=== PATIENT | male | born 1940 | race Caucasian/White ===

== ENCOUNTER 2016-10-03 09:30 | Inpatient (IN) | payer MEDICARE, OTHER ==
--- NOTE | ~2016-10-03 | HP ---
History And Physical [address] [address] NAME: ORAL GILLIAM : 41 STATUS : ADM IN [facility]#: [id number] AGE: 75 ADM/REG DATE : 10/03/16 MR#: [id number] REPORT SERV DATE: 10/03/16 DICTATED BY: ROEWNA FIGUEROA DATE: 10/03/16 REPORT STATUS : Draft TRANSCRIBED BY: MODL DATE: 10/03/16 DATE OF ADMISSION: 10/03/2016 PRIMARY CARE DOCTOR: Dr. Eder Garg. HISTORY OF PRESENT ILLNESS: This is a pleasant 75-year-old male. He has a known history of cardiomyopathy, LVEF 35%, 2012, has an AICD placement. Apparently was hospitalized back in early August for defibrillation for which the patient syncopized prior and did not do know that he was defibrillated. 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 Lopez. Known history of heparin-induced thrombocytopenia. Moderate to severe TR. Moderate MR. History of YUSUF on CPAP. Diverticulosis. Additional surgical history of AAA repair by Dr. Napier. CABG 1991. Left knee surgery. Back surgery. Left shoulder surgery. Skin cancer removed. The patient comes in after being recently discharged just yesterday. At that time, the patient had acute on chronic decompensated heart failure, systolic in nature, cor pulmonale. Hemoccult-positive. Anemia. MICHAEL on CKD was being seen by Nephrology. The patient was given IV Bumex drip at that time and was discharged on Demadex 40 p.o. b.i.d. It was thought to have also had bilateral lower extremity cellulitis with VTE being ruled out via ultrasound. Wound cultures at that time had showed Acinetobacter Enterococcus. Unclear if that was contamination; however, the patient was given 7 days of IV vancomycin and Zosyn with erythema improving. The patient was at home, was doing fairly okay. Then, he had uncontrollable coughing "smothering" especially while being orthopneic. The patient had positive chills. No fevers. No nausea. No vomiting. No diarrhea. No chest pain. No chest pressure. Positive shortness of breath. Positive orthopnea. Unclear if the patient had any PND as the patient is usually awake, at times waking up gasping for breath. Increased abdominal distention per the patient. There was a consideration last admission for which the patient was just discharged yesterday for a possible hospice destination of care if the patient's noncompliance continues, this patient feels uncomfortable with the amount of urination on diuretics for which the patient was diuresed with a negativity of 10.5 L last hospitalization; however, the patient states that he would like to be on the best regimen to make him comfortable and be compliant as the patient would like to continue living as the patient has grandchildren and they were about to be in the hospice formally at this time. The patient's anemia apparently was stable and his guaiac was positive. The patient comes in here. BNP is markedly elevated 914. Troponin was negative. INR is 2.3 for which the patient is only on Eliquis. Chest x-ray is underinspired. Some of the right History And Physical [address] [address] NAME: ORAL GILLIAM : 41 STATUS : ADM IN [facility]#: [id number] AGE: 75 ADM/REG DATE : 10/03/16 MR#: [id number] REPORT SERV DATE: 10/03/16 DICTATED BY: ROWENA FIGUEROA DATE: 10/03/16 REPORT STATUS : Draft TRANSCRIBED BY: BLANKA DATE: 10/03/16 middle lobe infiltrate. Some very mild bibasilar alveolar infiltration. REVIEW OF SYSTEMS: Done, see HPI. Otherwise, negative. PAST MEDICAL HISTORY: See above. PAST SURGICAL HISTORY: See above. ALLERGIES: NIACIN, HEPARIN-INDUCED THROMBOCYTOPENIA, APPARENTLY ALSO ON METOLAZONE DRUG INTOLERANCE, SEVERE HYPOKALEMIA AT THAT TIME. SOCIAL HISTORY: Quit smoking at age 51. Social wine use per history. , 2 children. Lives in [place]. History of marijuana use. 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 FAMILY HISTORY: Father in his 90s. Known history of PAD and heart disease as well. HOME MEDICATIONS: See MAR. We will continue what is relevant. OBJECTIVE: VITAL SIGNS: He is 102/62, then was 110 systolic, 97.5 temperature, 62 pulse, 18 respirations, and 95% on room air. GENERAL: No acute distress. HEENT: PERRLA. No scleral icterus. No carotid bruit. CARDIOVASCULAR: No carotid bruit. Regular rate and rhythm. No murmur. RESPIRATORY: Bibasilar coarse breath sounds. ABDOMEN: Positive distention. Positive pain, more in the right flank I noticed in the right lower quadrant. NEUROLOGIC: GCS 15. A and O x4. PSYCHIATRIC: Normal affect and mood. LABS: White count 6.7, hemoglobin 10.5, 125,000 platelets, 5.2, potassium 25, bicarb 2.35, creatinine baseline appears to be near that 1.9 and 2.3, 53 BUN, 133 sodium, 223 sugar. BNP 914. ABG 7.46/82 on 21%. INR 2.3. He is not on Coumadin. He is only on Eliquis. Chest x-ray, see above. Also EKG is going to be pending. I will go ahead and order my own. ASSESSMENT AND PLAN: 1. Acute decompensated heart failure acute on chronic systolic likely diastolic heart failure, LVEF last thought to have been 35%. Consideration for possible cor pulmonale. Unclear etiology for cor pulmonale. 2. Likely clinical chronic obstructive pulmonary disease who has had a history of cor pulmonale. 3. Chronic obstructive pulmonary disease at 3. 4. Baseline next is going to be this right middle lobe haziness. 5. Insulin-dependent diabetes, seems well controlled. 6. Mild hyperkalemia get EKG plan to go ahead admit to myself. The patient was considered for possible hospice given noncompliance with his medication regimen appears the History And Physical [address] [address] NAME: ORAL GILLIAM : 42 STATUS : ADM IN PAT#: [id number] AGE: 75 ADM/REG DATE : 10/03/16 MR#: [id number] REPORT SERV DATE: 10/03/16 DICTATED BY: ROWENA FIGUEROA DATE: 10/03/16 REPORT STATUS : Draft TRANSCRIBED BY: BLANKA DATE: 10/03/16 patient would like to be on the best regimen for his comfort of not being overly diurese in an uncomfortable manner. As a result, we will try to give the patient eventual discharge regimen of diuretics more in the morning in the interim, we will diurese the patient. Bumex 1 IV t.i.d. get an echo if not done in the last six months. Also cardiology consultation. Given consideration of possible hospice and recurrent readmissions. The patient was last discharged just yesterday. We will also go ahead and get a procalcitonin 4.5. He was started on Levaquin for consideration for right middle lobe possible infiltrate on like does not appear clinically to have any pneumonia the patient needs an outpatient PFT with possible Spiriva. We will also consider the patient to go to a facility before being discharged home is clearly cannot do as well at home. 7. Given his ascites and abdominal pain, I will get a CT of the abdomen and pelvis hepatitis ABC serologies does have an elevated INR without any explanation as patient is only on Eliquis and as a result of recent history of guaiac-positive stool, we will re-guaiac and reduce his Eliquis and we will consider holding that with a PPI b.i.d. therapy. 1.5 L free water fluid restriction. Resume his home CPAP see rest of my orders including anesthesiology physician assistant to talk about medication compliance. 8. All questions were answered. It took over 60 minutes to do. Reference [employer] and [employer]. WST/MODL Rowena Figueroa DO / [id number] CC: DO Eder Richard M.D.
--- NOTE | ~2016-10-03 | DS ---
Discharge Summary [place] [id number] [facility] [place]. [address] NAME: ORAL GILLIAM : 42 STATUS : DIS IN PAT#: [id number] AGE: 75 ADM/REG DATE : 10/03/16 MR#: [id number] REPORT SERV DATE: 10/17/16 DICTATED BY: GRETTA WINCHESTER DATE: 10/16/16 REPORT STATUS : Draft TRANSCRIBED BY: BLANKA DATE: 10/16/16 ADMISSION DATE: 10/03/2016 DISCHARGE DATE: 10/16/2016 DIAGNOSES: 1. Anasarca. 2. Acute on chronic systolic congestive heart failure exacerbation. 3. Lymphedema. 4. Severe tricuspid regurgitation. 5. Chronic kidney disease. 6. Type 2 diabetes. 7. Chronic atrial fibrillation. 8. Debility. FOLLOWUP: The patient should follow up with Dr. Cory Lopez, first aid director, in three to four weeks and to follow up with the primary care physician in one to two weeks after rehab. DIET: Low-salt diet. DISCHARGE MEDICATIONS: Eliquis 5 mg p.o. b.i.d., aspirin 81 mg p.o. q.h.s., Lipitor 20 mg p.o. q.h.s., torsemide 40 mg p.o. b.i.d., Coreg 12.5 mg p.o. b.i.d. hold for systolic pressures less than 100 and pulse less than 60, fenofibrate 160 mg p.o. daily, ferrous sulfate 300 mg p.o. q. supper, Neurontin 200 mg p.o. q.8 hours, level 2 subcu sliding scale insulin, morphine SR 15 mg p.o. b.i.d., nystatin topically b.i.d., Protonix 40 mg p.o. q.a.m., MiraLAX one pack p.o. q.h.s., Aldactone 25 mg p.o. daily, Flomax 0.4 mg p.o. q. breakfast, Spiriva inhaled daily, albuterol inhaled q.4 hours, Levemir 22 units subcu daily, Tessalon Perles 100 mg p.o. q.4 hours p.r.n., Lotrimin cream topically b.i.d. p.r.n., diphenhydramine 25 mg p.o. b.i.d. p.r.n., Kevil 10/325 one tab p.o. q.6 hours p.r.n., Robaxin 500 mg p.o. four times a day p.r.n., nitroglycerin sublingual p.r.n., potassium chloride 20 mEq p.o. b.i.d., Afrin spray one spray per nostril b.i.d. p.r.n. epistaxis. CONSULTANTS: Cardiology, Dr. Cory Lopez with [facility] Nephrology Dr. Cornejo. HOSPITALISTS: Dr. Eric Torres and Dr. Winchester. HOSPITAL COURSE: This is a 75 years old male with a past medical history of cardiomyopathy with ejection fraction of 35% status post AICD, history of hypertension, obstructive sleep apnea on CPAP, originally discharged from the hospital with fluid overload and CHF exacerbation, for which the patient required readmission for further fluid overload. The patient was seen by Cardiology with [facility]. The patient was diuresed, placed on IV Bumex, and required pulse dosing with albumin for better diuresing. He was also seen by Nephrology for assistance. The patient did have some improvement with his fluid overload. However, at baseline, has anasarca, but continues to have chronic lymphedema of the lower extremities. His breathing improved with diuresing, but still requiring lymphedema treatment. The patient was approved for [facility] and will be Discharge Summary [address] [address] NAME: ORAL GILLIAM : 42 STATUS : DIS IN PAT#: [id number] AGE: 75 ADM/REG DATE : 10/03/16 MR#: [id number] REPORT SERV DATE: 10/17/16 DICTATED BY: GRETTA WINCHESTER DATE: 10/16/16 REPORT STATUS : Draft TRANSCRIBED BY: BLANKA DATE: 10/16/16 discharged to [facility] and also will order for some lymphedema treatment as well. He was continued on his Eliquis by Cardiology and Nephrology for his history of chronic atrial fibrillation. He did have a repeat echocardiogram by Cardiology that revealed severe tricuspid regurgitation, which is adding to the patient's chronic lower extremity edema. Per Cardiology, the patient is not a surgical candidate and also the patient does not want any surgical intervention. Also, he was educated on low-salt diet and fluid restriction. He was discharged to [facility] clinically stable to follow up with the specialist as an outpatient. This discharge required greater than 35 minutes. LENCHO/BLANKA Gretta Winchester M.D. / [id number] CC: Aaron Mattson M.D.
--- NOTE | ~2016-10-03 | CN ---
Consultation Report [facility] [address] [place]. [address] NAME: ORAL GILLIAM : 42 STATUS : ADM IN PAT#: [id number] AGE: 75 ADM/REG DATE : 10/03/16 MR#: [id number] REPORT SERV DATE: 10/03/16 DICTATED BY: SANCHEZ MACK DATE: 10/03/16 REPORT STATUS : Draft TRANSCRIBED BY: MODL DATE: 10/03/16 CARDIOLOGY CONSULT DATE OF CONSULTATION: REFERRING REASON: Heart failure exacerbation and COPD exacerbation. HISTORY OF PRESENT ILLNESS: This is a pleasant 75-year-old white obese gentleman, well known to Dr. Cory Lopez, from [facility] who has been discharged from hospitalist service yesterday and readmitted today. He was readmitted for signs of PND last night and cough which apparently lasted for last three days. He denied any fever or chills. He has remote history of smoking and possible underlying COPD. He also has ischemic cardiomyopathy with EF 40% which actually showed improvement of ejection fraction from 35% previously, last echo was in August 2016. He has AICD in place without any recent discharges. His problem remained chronic kidney disease. Diuretics are managed by Nephrology. He also has some chronic venous insufficiency and history of AAA repair in the past and coronary bypass surgery in the past. The patient denies any chest pain. He has problem with cellulitis on both lower extremities and has been taking antibiotics for it until now. The chest x-ray has not revealed any significant fluid overload. No pleural effusion. BNP was only 917. INR is 2.3, hemoglobin is 10.5, and sodium 133 with creatinine 2.3 and BUN 53. Troponin is negative. The patient is on chronic anticoagulation with Eliquis for chronic atrial fibrillation. He is currently comfortable sitting and eating dinner. No shortness of breath. He is using oxygen only during the night. The rest of review of systems negative. He has not noticed any significant weight gain over less than 24 hours. PAST MEDICAL HISTORY: 1. Chronic congestive heart failure with recent exacerbation. 2. Ischemic cardiomyopathy with improvement of ejection fraction to 40% by echocardiogram August 2016. There is remote history of CABG with last coronary arteriogram in 2011 without any intervention option, medical therapy recommended. 3. Chronic kidney disease followed by Nephrology. 4. AICD in place without any recent discharges. 5. Chronic lower extremity edema in the setting of chronic venous insufficiency and recent cellulitis. 6. History of AAA repair in 2009. 7. He has renal artery stenting in the past. 8. Diabetes mellitus. 9. Obesity. 10.Chronic atrial fibrillation, on anticoagulation with Eliquis. SOCIAL HISTORY: The patient is . He quit smoking 25 years ago. He walks with a walker. Denies drinking alcohol or using street drugs. FAMILY HISTORY: Negative for sudden cardiac deaths or premature coronary artery disease in Consultation Report [address] [place]. [address] NAME: ORAL GILLIAM : 42 STATUS : ADM IN [facility]#: [id number] AGE: 75 ADM/REG DATE : 10/03/16 MR#: [id number] REPORT SERV DATE: 10/03/16 DICTATED BY: SANCHEZ MACK DATE: 10/03/16 REPORT STATUS : Draft TRANSCRIBED BY: BLANKA DATE: 10/03/16 the family. ALLERGIES: NIACIN AND METOLAZONE CAUSED HIM SEVERE HYPOKALEMIA. HOME MEDICATIONS: Eliquis 2.5 mg twice a day, aspirin 85 mg once a day, Lipitor 20 mg once a day, Coreg 12.5 mg twice a day, Benadryl p.r.n., fenofibrate 160 mg once a day, hydrocodone as needed, insulin, methocarbamol 500 mg four times a day as needed, MiraLAX as needed, potassium supplement 20 mEq twice a day, Aldactone 50 mg twice a day, Flomax, Demadex 40 mg twice a day. PHYSICAL EXAMINATION: GEN: No acute distress. Appears stated age. VITAL SIGNS: Blood pressure 111/56, heart rate 67, irregularly irregular. HEENT: Pupils reactive to light and accommodation. Moist mucosa membrane. NECK: No JVD. Normal carotid upstroke. No carotid bruits. LUNGS: Decreased breath sounds bibasilar, but no crackles. COR: Normal S1, S2. No S3 or S4. No significant rub. Laterally displaced PMI with soft systolic murmur 2/6 at the apex. ABD: Obese, distended, nontender. EXT: 1+ edema up to the half of the goldstein with surgical bandages over both shins and decreased pedal pulses bilaterally. SKIN: Warm with normal turgor. MS: No kyphosis. NEURO/PSY: Alert and oriented. Nonfocal. ASSESSMENT AND PLAN: 1. Congestive heart failure with recent exacerbation. 2. Likely chronic obstructive pulmonary disease exacerbation. 3. Ischemic cardiomyopathy. 4. Chronic atrial fibrillation, currently rate controlled. 5. Chronic anticoagulation with Eliquis. The patient will be on strict fluid restriction while he also has hyponatremia and heart failure exacerbation. We will ask help from Nephrology with management of his diuretics while he also has renal insufficiency. There are no obvious signs of fluid overload on physical exam at the present time. Thus, I believe that COPD may play some role in his recent exacerbation. We will continue anticoagulation with Eliquis. Dr. Lopez, will see patient in the morning. IVY/BLANKA Sanchez Mack M.D. Consultation Report [address] [address] NAME: ORAL GILLIAM : 42 STATUS : ADM IN PAT#: [id number] AGE: 75 ADM/REG DATE : 10/03/16 MR#: [id number] REPORT SERV DATE: 10/03/16 DICTATED BY: SANCHEZ MACK DATE: 10/03/16 REPORT STATUS : Draft TRANSCRIBED BY: BLANKA DATE: 10/03/16 / [id number] CC: DO Eder Richard M.D.
--- NOTE | ~2016-10-03 | IDS ---
Interim Discharge Summary [facility] [address] [place] [place]. [address] NAME: ORAL GILLIAM : 42 STATUS : ADM IN PAT#: [id number] AGE: 75 ADM/REG DATE : 10/03/16 MR#: [id number] REPORT SERV DATE: 10/09/16 DICTATED BY: ROWENA FIGUEROA DATE: 10/09/16 REPORT STATUS : Draft TRANSCRIBED BY: MODL DATE: 10/09/16 ADMISSION DATE: 10/03/2016 DISCHARGE DATE: HOSPITAL COURSE: This is a 75-year-old, male with known history of cardiomyopathy, EF 35%, now up to 40%; AICD placement; known history of diabetes, A1c pretty well controlled 6.8, apparently, insulin dependence; CAD with PCI; history of CABG, sees Dr. 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 The patient comes in after recent discharge. At that time, he had acute on chronic decompensated heart failure, cor pulmonale, Hemoccult positivity, planned for an outpatient endoscopy with vanc and Zosyn treatment for Acinetobacter, Enterococcal wound culture unclear if that is colonization. The patient came in with significant PND and orthopnea. Apparently, the patient was upset regarding consideration for palliative care/hospice. As a result, both Renal and Cardiology became involved in re-admission. The patient has been on IV Bumex here now to IV diuresis per Renal. The patient has had clinical COPD with wheezing, improved with 3 out 3 GOLD criteria warranted Levaquin and corticosteroids. I did discontinue the corticosteroid given unpredictable glycemic need and the patient now is becoming more hypoglycemic. As a result, we will get a.m. cortisol and TSH. Cortisol could have been affected though by corticosteroid. The patient seems to not be eating as much. We will have dietary education regarding compliance with diet. The patient will get a repeat ultrasound of lower extremities. His Physical Therapy told me that legs appeared to be more swollen today compared to last week. I will go ahead and reduce his insulin requirements he had again despite taking much less than he does at home. The patient may have some very mild dementia, had a CT of the brain that did show atrophy. B12, ammonia folate were fairly unremarkable. The patient will be followed tomorrow by my partner Dr. Joy, get repeat ultrasound lower extremities. See my orders including regular Accu-Cheks given hypoglycemic. Defer to Renal and Cardiology and their expertise for the date of discharge. Hope would be more euvolemia. All questions were answered. It took over 30 minutes to coordinate all of this. NATALIE/BLANKA Rowena Figueroa DO Interim Discharge Summary [facility] [address] [facility] [place]. [address] NAME: ORAL GILLIAM : 42 STATUS : ADM IN PAT#: [id number] AGE: 75 ADM/REG DATE : 10/03/16 MR#: [id number] REPORT SERV DATE: 10/09/16 DICTATED BY: ROWENA FIGUEROA DATE: 10/09/16 REPORT STATUS : Draft TRANSCRIBED BY: MODL DATE: 10/09/16 / [id number] CC: DO Eder Richard M.D.
[~2016-10-03 09:30] MED LIST: AMB5 PO; AMIT10 PO; AMIT25 PO; ASAB PO; BEN25 PO; BENADRYL 50 MG50 MG PO; BUM2 PO; BYDUREON2 MG SQ; BYETTA10 SC; CALC/MAG/ZINC PO; CALCIUM/MAG/ZINC PO; CARTIA XT240 MG/24 PO; CLOTRIMAZOLE1 % TOP; CO Q-1050 MG PO; COQ-10200 MG OR; COQ10100 MG OR; COQ10100 MG PO; COREG25 PO; COREG6 PO; COREGCR20 PO; CRESTOR10 PO; CRESTOR20 MG PO; CRESTOR40 MG PO; DEMA20 PO; DIABETA5 PO; DSS PO; ELIQUIS 5 MG TAB5 MG PO; FERROUS SULF325 M1 PO; FISH OIL1200 MG PO; FISH-EPA1000 MG PO; FLOMAX4 PO; FOLIC ACID400 MC1 PO; GLUCOV5 PO; HCTZ25B PO; HUMALOG SC; HUMALOGPEN SC; IBU-200200 MG PO; KLOR-CON 1010 MEQ PO; KLOR-CON M2020 MEQ PO; KLOR-CON20 MEQ PO; LANTUSCART SC; LEVEMFLXPN SC; LEVEMIR SC; LIPITOR20 PO; LOFIB160 PO; LOFIBRA54 MG PO; LORTAB10 PO; LYRICA100 MG PO; MELA3 PO; MELATONIN1 M1 PO; METAMUCIL CAN7 OZ PO; METHOC500B PO; METOLAZONE PO; MIRALAXPKT PO; MULTIPLE VIT PO; NEUR600 PO; NIACIN 500 PO; NITROSTAT0.4 MG SL; NORCO1 TAB PO; NOVOLOG SC; NYSTATPOW TOP; PLAVIX PO; PROTONIX PO; SPIRO25 PO; SPIRO50 PO; TESTOSTERONE SL; TOUJEO SC; TRICOR145 PO; VIT B-SIX 50 MG50 MG PO; VITAMIN D31000 UNIT PO; VITC500 PO; VITE PO; VYTORIN 10/20 T1 TAB PO; ZAROX2.5B PO; ZINC GLUCON50 MG PO; [UNRECOGNIZED DRUG - OTHER]; [UNRECOGNIZED DRUG - OTHER]; [UNRECOGNIZED DRUG - OTHER] TOP
[2016-10-03 09:37] LABS: ALLENS TEST Pos; BE (BASE EXCESS) -2.3 MEQ/L (0 +/- 2.5); CARBOXYHEMOGLOBIN 1.5 % (0-3); HCO3 (ACTUAL BICARBONATE) 20.7 MEQ/L (23-27); INSTRUMENT SERIAL # 8087; METHEMOGLOBIN 0.2 % (0-3); O2 CONTENT 14.7 VOL% (18-24); PCO2 (CO2 TENSION) 30 MMHG (35-45); PO2 (O2 TENSION) 82 MMHG (79-93); SAMPLE Arterial; pH 7.46 (7.37-7.43)
[2016-10-03 10:30] LABS: BASOPHILS 0.4 %; BASOPHILS ABSOLUTE 0.03 10/3/uL (0.0-0.16); EOSINOPHILS 2.1 %; EOSINOPHILS ABSOLUTE 0.14 10/3/uL (0.0-0.53); HEMATOCRIT 33.3 % (40.0-51.0); HEMOGLOBIN 10.5 g/dL (13.6-17.8); IMMATURE GRANULOCYTES 0.1 %; IMMATURE GRANULOCYTES ABSOLUTE 0.01 10/3/uL (0.0-0.11); LYMPHOCYTES 8.3 %; LYMPHOCYTES ABSOLUTE 0.56 10/3/uL (0.67-4.30); MEAN CORPUS HGB CONC 31.5 g/dL (32.0-36.0); MEAN CORPUSCULAR HEMOGLOB 29.3 pg (26.0-34.0); MEAN PLATELET VOLUME 11.4 fL (9.2-13.0); MONOCYTES 10.4 %; NEUTROPHILS 78.7 %; NEUTROPHILS ABSOLUTE 5.29 10/3/uL (2.02-8.40); PLATELET COUNT 125 10/3/uL (150-400); RBC DISTRIBUTION WIDTH 17.9 % (12.0-16.0); RED CELL COUNT 3.58 10/6/uL (4.7-6.1); WHITE BLOOD CELLS 6.7 10/3/uL (4.5-10.5)
[2016-10-03 10:31] LABS: MANUAL DIFF NO %
[2016-10-03 10:36] LABS: INTERNATIONAL NORMAL RATI 2.3 UNITS (-)
[2016-10-03 10:37] LABS: PARTIAL THROMBO TIME 44.9 SEC (22.5-37.2)
[2016-10-03 10:43] LABS: INFLUENZA A SCREEN NEGATIVE (NEGATIVE); INFLUENZA B SCREEN NEGATIVE (NEGATIVE)
[2016-10-03 10:57] LABS: B NATRIURETIC PEPTIDE (BNP) 914.2 PG/ML (< 100.0)
[2016-10-03 11:04] LABS: CALCIUM, SERUM 8.7 MG/DL (8.5-10.4); CHLORIDE, SERUM 96 MMOL/L (96-112); CO2 (CARBON DIOXIDE) 25 MMOL/L (24-34); CPK 114 U/L (0-200); CREATININE 2.35 MG/DL (0.70-1.30); GFR AFRICAN AMERICAN 30 ML/MIN (>=60); GFR NON AFRICAN AMERICAN 26 ML/MIN (>=60); POTASSIUM, SERUM 5.2 MMOL/L (3.5-5.3); SODIUM, SERUM 133 MMOL/L (135-148); TROPONIN I 0.04 NG/ML (<0.05)
[2016-10-03 11:06] LABS: BUN (BLOOD UREA NITROGEN) 53 MG/DL (6-23); CK-MB 2.8 NG/ML; GLUCOSE, SERUM 223 MG/DL (60-99)
[2016-10-03 11:07] LABS: CHEST PAIN PROFILE TAT 0 Hrs 38 Mins
[2016-10-03 16:39] LABS: A/G RATIO 0.7 (0.7-1.9); ALBUMIN 3.1 G/DL (3.5-5.0); ALKALINE PHOSPHATASE 60 U/L (45-117); GLOBULIN 4.2 G/DL (2.5-4.1); PHOSPHORUS, SERUM 3.1 MG/DL (2.5-4.5); SGOT(AST) 40 U/L (5-40); SGPT(ALT) 22 U/L (5-65); TOTAL PROTEIN 7.3 G/DL (6.0-8.5)
[2016-10-03 16:40] LABS: TOTAL BILIRUBIN 1.5 MG/DL (0-1.2)
[2016-10-03 23:26] LABS: WBC (NOT ORDERED) (RFLEX) 0 (0-5)
[2016-10-04 01:38] LABS: ASCORBIC ACID (UR NOT ORDER) NEG (NEG); BILIRUBIN, URINE NEGATIVE (NEG); ER URINALYSIS TAT 2 Hrs 12 Mins; KETONE, URINE NEGATIVE (NEG); LEUKOCYTE ESTERASE(NOT OR NEG (NEG); NITRITE (URINE) NEG (NEG)
[2016-10-04 07:10] LABS: BASOPHILS 0.7 %; BASOPHILS ABSOLUTE 0.05 10/3/uL (0.0-0.16); EOSINOPHILS 3.5 %; EOSINOPHILS ABSOLUTE 0.24 10/3/uL (0.0-0.53); HEMATOCRIT 31.5 % (40.0-51.0); HEMOGLOBIN 9.7 g/dL (13.6-17.8); IMMATURE GRANULOCYTES 0.1 %; IMMATURE GRANULOCYTES ABSOLUTE 0.01 10/3/uL (0.0-0.11); LYMPHOCYTES 16.9 %; LYMPHOCYTES ABSOLUTE 1.16 10/3/uL (0.67-4.30); MEAN CORPUS HGB CONC 30.8 g/dL (32.0-36.0); MEAN CORPUSCULAR HEMOGLOB 28.7 pg (26.0-34.0); MEAN CORPUSCULAR VOLUME 93.2 fL (80-100); MEAN PLATELET VOLUME 10.6 fL (9.2-13.0); MONOCYTES ABSOLUTE 0.34 10/3/uL (0.21-1.20); NEUTROPHILS 73.8 %; NEUTROPHILS ABSOLUTE 5.05 10/3/uL (2.02-8.40); PLATELET COUNT 118 10/3/uL (150-400); RBC DISTRIBUTION WIDTH 17.9 % (12.0-16.0); RED CELL COUNT 3.38 10/6/uL (4.7-6.1); WHITE BLOOD CELLS 6.9 10/3/uL (4.5-10.5)
[2016-10-04 07:12] LABS: MANUAL DIFF NO %
[2016-10-04 09:54] LABS: ALBUMIN 2.8 G/DL (3.5-5.0); BUN (BLOOD UREA NITROGEN) 50 MG/DL (6-23); CALCIUM, SERUM 8.6 MG/DL (8.5-10.4); CHLORIDE, SERUM 95 MMOL/L (96-112); CO2 (CARBON DIOXIDE) 21 MMOL/L (24-34); CREATININE 2.23 MG/DL (0.70-1.30); GFR AFRICAN AMERICAN 32 ML/MIN (>=60); GFR NON AFRICAN AMERICAN 28 ML/MIN (>=60); GLUCOSE, SERUM 238 MG/DL (60-99); PHOSPHORUS, SERUM 3.3 MG/DL (2.5-4.5); SODIUM, SERUM 130 MMOL/L (135-148)
[2016-10-04 09:55] LABS: POTASSIUM, SERUM 4.5 MMOL/L (3.5-5.3)
[2016-10-04 10:36] LABS: HEPATITIS B SURFACE ANTIGEN NON-REACTIVE (NON-REACT)
[2016-10-04 10:59] LABS: HEPATITIS C ANTIBODY NON-REACTIVE (NON-REACT)
[2016-10-04 11:00] LABS: HEPATITIS B CORE AB IGM NON-REACTIVE (NON-REAC)
[2016-10-04 11:01] LABS: HEP A ANTIBODY IGM NON-REACTIVE (NON-REACT)
[2016-10-04 22:03] LABS: GLYCOHEMOGLOBIN (HbA1c) 6.2 % (4.7-6.1)
[2016-10-05 07:07] LABS: BASOPHILS 0 %; EOSINOPHILS 0.3 %; EOSINOPHILS ABSOLUTE 0.01 10/3/uL (0.0-0.53); HEMATOCRIT 32.2 % (40.0-51.0); HEMOGLOBIN 10.2 g/dL (13.6-17.8); IMMATURE GRANULOCYTES 0.3 %; IMMATURE GRANULOCYTES ABSOLUTE 0.01 10/3/uL (0.0-0.11); LYMPHOCYTES ABSOLUTE 0.34 10/3/uL (0.67-4.30); MEAN CORPUS HGB CONC 31.7 g/dL (32.0-36.0); MEAN CORPUSCULAR HEMOGLOB 29.7 pg (26.0-34.0); MEAN CORPUSCULAR VOLUME 93.9 fL (80-100); MEAN PLATELET VOLUME 11.1 fL (9.2-13.0); MONOCYTES 2.3 %; MONOCYTES ABSOLUTE 0.08 10/3/uL (0.21-1.20); NEUTROPHILS 87.1 %; NEUTROPHILS ABSOLUTE 2.97 10/3/uL (2.02-8.40); PLATELET COUNT 115 10/3/uL (150-400); RBC DISTRIBUTION WIDTH 17.7 % (12.0-16.0); RED CELL COUNT 3.43 10/6/uL (4.7-6.1)
[2016-10-05 07:09] LABS: MANUAL DIFF NO %; WHITE BLOOD CELLS 3.4 10/3/uL (4.5-10.5)
[2016-10-05 08:10] LABS: BUN (BLOOD UREA NITROGEN) 51 MG/DL (6-23); CALCIUM, SERUM 8.6 MG/DL (8.5-10.4); CHLORIDE, SERUM 94 MMOL/L (96-112); CO2 (CARBON DIOXIDE) 23 MMOL/L (24-34); GFR AFRICAN AMERICAN 33 ML/MIN (>=60); GFR NON AFRICAN AMERICAN 28 ML/MIN (>=60); SODIUM, SERUM 131 MMOL/L (135-148)
[2016-10-05 08:12] LABS: FOLATE 22.7 NG/ML (>5.2); GLUCOSE, SERUM 172 MG/DL (60-99)
[2016-10-06 07:42] LABS: BASOPHILS 0 %; EOSINOPHILS 0 %; HEMATOCRIT 31.9 % (40.0-51.0); HEMOGLOBIN 10.1 g/dL (13.6-17.8); IMMATURE GRANULOCYTES 0.2 %; IMMATURE GRANULOCYTES ABSOLUTE 0.02 10/3/uL (0.0-0.11); LYMPHOCYTES 5.1 %; LYMPHOCYTES ABSOLUTE 0.56 10/3/uL (0.67-4.30); MEAN CORPUS HGB CONC 31.7 g/dL (32.0-36.0); MEAN CORPUSCULAR HEMOGLOB 28.7 pg (26.0-34.0); MEAN PLATELET VOLUME 11.1 fL (9.2-13.0); MONOCYTES 9.6 %; MONOCYTES ABSOLUTE 1.06 10/3/uL (0.21-1.20); NEUTROPHILS 85.1 %; NEUTROPHILS ABSOLUTE 9.42 10/3/uL (2.02-8.40); PLATELET COUNT 132 10/3/uL (150-400); RBC DISTRIBUTION WIDTH 17.7 % (12.0-16.0); RED CELL COUNT 3.52 10/6/uL (4.7-6.1)
[2016-10-06 07:45] LABS: MANUAL DIFF NO %; MEAN CORPUSCULAR VOLUME 90.6 fL (80-100); WHITE BLOOD CELLS 11.1 10/3/uL (4.5-10.5)
[2016-10-06 07:54] LABS: INTERNATIONAL NORMAL RATI 2.2 UNITS (-)
[2016-10-06 07:55] LABS: ALBUMIN 2.9 G/DL (3.5-5.0); CALCIUM, SERUM 8.7 MG/DL (8.5-10.4); CHLORIDE, SERUM 92 MMOL/L (96-112); CO2 (CARBON DIOXIDE) 26 MMOL/L (24-34); CREATININE 2.43 MG/DL (0.70-1.30); GFR AFRICAN AMERICAN 29 ML/MIN (>=60); GFR NON AFRICAN AMERICAN 25 ML/MIN (>=60); GLUCOSE, SERUM 175 MG/DL (60-99); PHOSPHORUS, SERUM 3.6 MG/DL (2.5-4.5); POTASSIUM, SERUM 3.8 MMOL/L (3.5-5.3); SODIUM, SERUM 131 MMOL/L (135-148)
[2016-10-06 07:57] LABS: BUN (BLOOD UREA NITROGEN) 61 MG/DL (6-23)
[2016-10-06] MEDS ORDERED: NEUR600 PO (15:19)
[2016-10-07 06:55] LABS: BASOPHILS 0.1 %; BASOPHILS ABSOLUTE 0.01 10/3/uL (0.0-0.16); EOSINOPHILS 0.4 %; EOSINOPHILS ABSOLUTE 0.04 10/3/uL (0.0-0.53); HEMATOCRIT 32.3 % (40.0-51.0); HEMOGLOBIN 10.5 g/dL (13.6-17.8); IMMATURE GRANULOCYTES 0.2 %; IMMATURE GRANULOCYTES ABSOLUTE 0.02 10/3/uL (0.0-0.11); LYMPHOCYTES 8.3 %; LYMPHOCYTES ABSOLUTE 0.77 10/3/uL (0.67-4.30); MANUAL DIFF NO %; MEAN CORPUS HGB CONC 32.5 g/dL (32.0-36.0); MEAN CORPUSCULAR HEMOGLOB 29.3 pg (26.0-34.0); MEAN CORPUSCULAR VOLUME 90.2 fL (80-100); MEAN PLATELET VOLUME 11.1 fL (9.2-13.0); MONOCYTES 13.7 %; MONOCYTES ABSOLUTE 1.27 10/3/uL (0.21-1.20); NEUTROPHILS 77.3 %; NEUTROPHILS ABSOLUTE 7.18 10/3/uL (2.02-8.40); PLATELET COUNT 140 10/3/uL (150-400); RBC DISTRIBUTION WIDTH 17.5 % (12.0-16.0); RED CELL COUNT 3.58 10/6/uL (4.7-6.1); WHITE BLOOD CELLS 9.3 10/3/uL (4.5-10.5)
[2016-10-07 06:58] LABS: INTERNATIONAL NORMAL RATI 1.9 UNITS (-)
[2016-10-07 07:05] LABS: ALBUMIN 2.9 G/DL (3.5-5.0); BUN (BLOOD UREA NITROGEN) 60 MG/DL (6-23); CALCIUM, SERUM 8.5 MG/DL (8.5-10.4); CHLORIDE, SERUM 92 MMOL/L (96-112); CO2 (CARBON DIOXIDE) 25 MMOL/L (24-34); CREATININE 2.25 MG/DL (0.70-1.30); GFR AFRICAN AMERICAN 32 ML/MIN (>=60); GFR NON AFRICAN AMERICAN 28 ML/MIN (>=60); GLUCOSE, SERUM 88 MG/DL (60-99); PHOSPHORUS, SERUM 3.1 MG/DL (2.5-4.5); POTASSIUM, SERUM 3.4 MMOL/L (3.5-5.3); SODIUM, SERUM 132 MMOL/L (135-148)
[2016-10-08 05:36] LABS: INTERNATIONAL NORMAL RATI 1.9 UNITS (-); PROTIME (NOT ORD) 21.7 SEC (12.0-14.5)
[2016-10-08 05:58] LABS: CALCIUM, SERUM 8.6 MG/DL (8.5-10.4); CHLORIDE, SERUM 94 MMOL/L (96-112); CO2 (CARBON DIOXIDE) 27 MMOL/L (24-34); GFR AFRICAN AMERICAN 37 ML/MIN (>=60); GFR NON AFRICAN AMERICAN 32 ML/MIN (>=60); GLUCOSE, SERUM 97 MG/DL (60-99); POTASSIUM, SERUM 3.1 MMOL/L (3.5-5.3); SODIUM, SERUM 134 MMOL/L (135-148)
[2016-10-08 06:00] LABS: BUN (BLOOD UREA NITROGEN) 65 MG/DL (6-23)
[2016-10-09 06:44] LABS: BASOPHILS 0.2 %; BASOPHILS ABSOLUTE 0.01 10/3/uL (0.0-0.16); EOSINOPHILS 3.6 %; EOSINOPHILS ABSOLUTE 0.24 10/3/uL (0.0-0.53); HEMATOCRIT 33.3 % (40.0-51.0); HEMOGLOBIN 10.5 g/dL (13.6-17.8); IMMATURE GRANULOCYTES 0.3 %; IMMATURE GRANULOCYTES ABSOLUTE 0.02 10/3/uL (0.0-0.11); LYMPHOCYTES 14.1 %; LYMPHOCYTES ABSOLUTE 0.94 10/3/uL (0.67-4.30); MEAN CORPUS HGB CONC 31.5 g/dL (32.0-36.0); MEAN CORPUSCULAR HEMOGLOB 29.3 pg (26.0-34.0); MONOCYTES 13.4 %; MONOCYTES ABSOLUTE 0.89 10/3/uL (0.21-1.20); NEUTROPHILS 68.4 %; NEUTROPHILS ABSOLUTE 4.56 10/3/uL (2.02-8.40); PLATELET COUNT 125 10/3/uL (150-400); RBC DISTRIBUTION WIDTH 17.8 % (12.0-16.0); RED CELL COUNT 3.58 10/6/uL (4.7-6.1); WHITE BLOOD CELLS 6.7 10/3/uL (4.5-10.5)
[2016-10-09 06:46] LABS: MANUAL DIFF NO %
[2016-10-09 06:50] LABS: INTERNATIONAL NORMAL RATI 1.9 UNITS (-); PROTIME (NOT ORD) 21.8 SEC (12.0-14.5)
[2016-10-09 06:55] LABS: ALBUMIN 2.7 G/DL (3.5-5.0); BUN (BLOOD UREA NITROGEN) 62 MG/DL (6-23); CALCIUM, SERUM 8.9 MG/DL (8.5-10.4); CHLORIDE, SERUM 95 MMOL/L (96-112); CO2 (CARBON DIOXIDE) 29 MMOL/L (24-34); CREATININE 1.71 MG/DL (0.70-1.30); GFR AFRICAN AMERICAN 45 ML/MIN (>=60); GFR NON AFRICAN AMERICAN 39 ML/MIN (>=60); PHOSPHORUS, SERUM 2.8 MG/DL (2.5-4.5); POTASSIUM, SERUM 3.4 MMOL/L (3.5-5.3); SODIUM, SERUM 134 MMOL/L (135-148)
[2016-10-09 06:56] LABS: GLUCOSE, SERUM 45 MG/DL (60-99)
[2016-10-10 06:20] LABS: INTERNATIONAL NORMAL RATI 2.2 UNITS (-); PROTIME (NOT ORD) 24.2 SEC (12.0-14.5)
[2016-10-10 06:23] LABS: BASOPHILS 0.2 %; BASOPHILS ABSOLUTE 0.01 10/3/uL (0.0-0.16); EOSINOPHILS 5.5 %; EOSINOPHILS ABSOLUTE 0.34 10/3/uL (0.0-0.53); HEMATOCRIT 34.1 % (40.0-51.0); HEMOGLOBIN 10.9 g/dL (13.6-17.8); IMMATURE GRANULOCYTES 0.2 %; IMMATURE GRANULOCYTES ABSOLUTE 0.01 10/3/uL (0.0-0.11); LYMPHOCYTES ABSOLUTE 0.86 10/3/uL (0.67-4.30); MANUAL DIFF NO %; MEAN CORPUSCULAR HEMOGLOB 29.9 pg (26.0-34.0); MEAN CORPUSCULAR VOLUME 93.4 fL (80-100); MEAN PLATELET VOLUME 11.2 fL (9.2-13.0); MONOCYTES 12.4 %; MONOCYTES ABSOLUTE 0.76 10/3/uL (0.21-1.20); NEUTROPHILS 67.7 %; NEUTROPHILS ABSOLUTE 4.15 10/3/uL (2.02-8.40); PLATELET COUNT 129 10/3/uL (150-400); RBC DISTRIBUTION WIDTH 17.6 % (12.0-16.0); RED CELL COUNT 3.65 10/6/uL (4.7-6.1); WHITE BLOOD CELLS 6.1 10/3/uL (4.5-10.5)
[2016-10-10 06:43] LABS: ALBUMIN 2.9 G/DL (3.5-5.0); BUN (BLOOD UREA NITROGEN) 63 MG/DL (6-23); CALCIUM, SERUM 8.5 MG/DL (8.5-10.4); CHLORIDE, SERUM 94 MMOL/L (96-112); CO2 (CARBON DIOXIDE) 30 MMOL/L (24-34); CREATININE 1.98 MG/DL (0.70-1.30); GFR AFRICAN AMERICAN 37 ML/MIN (>=60); GFR NON AFRICAN AMERICAN 32 ML/MIN (>=60); PHOSPHORUS, SERUM 3.1 MG/DL (2.5-4.5); POTASSIUM, SERUM 3.7 MMOL/L (3.5-5.3); SODIUM, SERUM 134 MMOL/L (135-148)
[2016-10-10 06:47] LABS: GLUCOSE, SERUM 113 MG/DL (60-99)
[2016-10-11 06:52] LABS: BASOPHILS 0.1 %; BASOPHILS ABSOLUTE 0.01 10/3/uL (0.0-0.16); EOSINOPHILS 4.9 %; EOSINOPHILS ABSOLUTE 0.35 10/3/uL (0.0-0.53); HEMATOCRIT 34.3 % (40.0-51.0); HEMOGLOBIN 10.9 g/dL (13.6-17.8); IMMATURE GRANULOCYTES 0.1 %; IMMATURE GRANULOCYTES ABSOLUTE 0.01 10/3/uL (0.0-0.11); LYMPHOCYTES 9.2 %; LYMPHOCYTES ABSOLUTE 0.66 10/3/uL (0.67-4.30); MANUAL DIFF NO %; MEAN CORPUS HGB CONC 31.8 g/dL (32.0-36.0); MEAN CORPUSCULAR HEMOGLOB 29.5 pg (26.0-34.0); MEAN PLATELET VOLUME 11.1 fL (9.2-13.0); MONOCYTES 11.1 %; NEUTROPHILS 74.6 %; NEUTROPHILS ABSOLUTE 5.38 10/3/uL (2.02-8.40); PLATELET COUNT 130 10/3/uL (150-400); RBC DISTRIBUTION WIDTH 17.8 % (12.0-16.0); RED CELL COUNT 3.69 10/6/uL (4.7-6.1); WHITE BLOOD CELLS 7.2 10/3/uL (4.5-10.5)
[2016-10-11 06:57] LABS: INTERNATIONAL NORMAL RATI 2.2 UNITS (-); PROTIME (NOT ORD) 24.5 SEC (12.0-14.5)
[2016-10-11 07:05] LABS: CALCIUM, SERUM 8.5 MG/DL (8.5-10.4); CHLORIDE, SERUM 94 MMOL/L (96-112); CO2 (CARBON DIOXIDE) 29 MMOL/L (24-34); CREATININE 1.73 MG/DL (0.70-1.30); GFR AFRICAN AMERICAN 44 ML/MIN (>=60); GFR NON AFRICAN AMERICAN 38 ML/MIN (>=60); GLUCOSE, SERUM 119 MG/DL (60-99); POTASSIUM, SERUM 3.4 MMOL/L (3.5-5.3); SODIUM, SERUM 134 MMOL/L (135-148)
[2016-10-11 07:07] LABS: BUN (BLOOD UREA NITROGEN) 55 MG/DL (6-23)
[2016-10-12 06:53] LABS: BASOPHILS 0.2 %; BASOPHILS ABSOLUTE 0.01 10/3/uL (0.0-0.16); EOSINOPHILS 5.2 %; EOSINOPHILS ABSOLUTE 0.34 10/3/uL (0.0-0.53); HEMOGLOBIN 10.5 g/dL (13.6-17.8); IMMATURE GRANULOCYTES 0.2 %; IMMATURE GRANULOCYTES ABSOLUTE 0.01 10/3/uL (0.0-0.11); LYMPHOCYTES 14.4 %; LYMPHOCYTES ABSOLUTE 0.94 10/3/uL (0.67-4.30); MEAN CORPUS HGB CONC 30.9 g/dL (32.0-36.0); MEAN CORPUSCULAR HEMOGLOB 28.1 pg (26.0-34.0); MEAN CORPUSCULAR VOLUME 90.9 fL (80-100); MEAN PLATELET VOLUME 11.1 fL (9.2-13.0); MONOCYTES 10.3 %; MONOCYTES ABSOLUTE 0.67 10/3/uL (0.21-1.20); NEUTROPHILS 69.7 %; NEUTROPHILS ABSOLUTE 4.54 10/3/uL (2.02-8.40); PLATELET COUNT 132 10/3/uL (150-400); RBC DISTRIBUTION WIDTH 17.9 % (12.0-16.0); RED CELL COUNT 3.74 10/6/uL (4.7-6.1); WHITE BLOOD CELLS 6.5 10/3/uL (4.5-10.5)
[2016-10-12 06:55] LABS: MANUAL DIFF NO %
[2016-10-12 07:03] LABS: ALBUMIN 2.8 G/DL (3.5-5.0); BUN (BLOOD UREA NITROGEN) 56 MG/DL (6-23); CALCIUM, SERUM 8.6 MG/DL (8.5-10.4); CHLORIDE, SERUM 93 MMOL/L (96-112); CO2 (CARBON DIOXIDE) 30 MMOL/L (24-34); GFR AFRICAN AMERICAN 42 ML/MIN (>=60); GFR NON AFRICAN AMERICAN 36 ML/MIN (>=60); PHOSPHORUS, SERUM 2.9 MG/DL (2.5-4.5); SODIUM, SERUM 135 MMOL/L (135-148)
[2016-10-12 07:04] LABS: GLUCOSE, SERUM 158 MG/DL (60-99)
[2016-10-12 07:08] LABS: INTERNATIONAL NORMAL RATI 2.4 UNITS (-); PROTIME (NOT ORD) 25.7 SEC (12.0-14.5)
[2016-10-13 06:44] LABS: BASOPHILS 0.1 %; BASOPHILS ABSOLUTE 0.01 10/3/uL (0.0-0.16); EOSINOPHILS 4.8 %; EOSINOPHILS ABSOLUTE 0.33 10/3/uL (0.0-0.53); HEMATOCRIT 34.6 % (40.0-51.0); HEMOGLOBIN 10.8 g/dL (13.6-17.8); IMMATURE GRANULOCYTES 0.1 %; IMMATURE GRANULOCYTES ABSOLUTE 0.01 10/3/uL (0.0-0.11); LYMPHOCYTES 13.3 %; LYMPHOCYTES ABSOLUTE 0.91 10/3/uL (0.67-4.30); MEAN CORPUS HGB CONC 31.2 g/dL (32.0-36.0); MEAN CORPUSCULAR HEMOGLOB 29.2 pg (26.0-34.0); MEAN CORPUSCULAR VOLUME 93.5 fL (80-100); MEAN PLATELET VOLUME 11.3 fL (9.2-13.0); MONOCYTES 10.2 %; NEUTROPHILS 71.5 %; NEUTROPHILS ABSOLUTE 4.87 10/3/uL (2.02-8.40); PLATELET COUNT 130 10/3/uL (150-400); RBC DISTRIBUTION WIDTH 17.7 % (12.0-16.0); WHITE BLOOD CELLS 6.8 10/3/uL (4.5-10.5)
[2016-10-13 06:47] LABS: MANUAL DIFF NO %
[2016-10-13 06:53] LABS: INTERNATIONAL NORMAL RATI 2.5 UNITS (-); PROTIME (NOT ORD) 26.4 SEC (12.0-14.5)
[2016-10-14 05:52] LABS: INTERNATIONAL NORMAL RATI 2.4 UNITS (-); PROTIME (NOT ORD) 25.6 SEC (12.0-14.5)
[2016-10-14 05:57] LABS: BASOPHILS 0.2 %; BASOPHILS ABSOLUTE 0.01 10/3/uL (0.0-0.16); EOSINOPHILS 4.3 %; EOSINOPHILS ABSOLUTE 0.23 10/3/uL (0.0-0.53); HEMATOCRIT 33.7 % (40.0-51.0); HEMOGLOBIN 10.7 g/dL (13.6-17.8); IMMATURE GRANULOCYTES 0.4 %; IMMATURE GRANULOCYTES ABSOLUTE 0.02 10/3/uL (0.0-0.11); LYMPHOCYTES 14.5 %; LYMPHOCYTES ABSOLUTE 0.78 10/3/uL (0.67-4.30); MANUAL DIFF NO %; MEAN CORPUS HGB CONC 31.8 g/dL (32.0-36.0); MEAN CORPUSCULAR HEMOGLOB 29.6 pg (26.0-34.0); MEAN CORPUSCULAR VOLUME 93.1 fL (80-100); MEAN PLATELET VOLUME 11.2 fL (9.2-13.0); MONOCYTES 11.5 %; MONOCYTES ABSOLUTE 0.62 10/3/uL (0.21-1.20); NEUTROPHILS 69.1 %; NEUTROPHILS ABSOLUTE 3.71 10/3/uL (2.02-8.40); PLATELET COUNT 109 10/3/uL (150-400); RBC DISTRIBUTION WIDTH 17.7 % (12.0-16.0); RED CELL COUNT 3.62 10/6/uL (4.7-6.1); WHITE BLOOD CELLS 5.4 10/3/uL (4.5-10.5)
[2016-10-14 06:00] LABS: BUN (BLOOD UREA NITROGEN) 52 MG/DL (6-23); CALCIUM, SERUM 8.6 MG/DL (8.5-10.4); CHLORIDE, SERUM 92 MMOL/L (96-112); CO2 (CARBON DIOXIDE) 30 MMOL/L (24-34); CREATININE 1.91 MG/DL (0.70-1.30); GFR AFRICAN AMERICAN 39 ML/MIN (>=60); GFR NON AFRICAN AMERICAN 34 ML/MIN (>=60); GLUCOSE, SERUM 136 MG/DL (60-99); POTASSIUM, SERUM 3.7 MMOL/L (3.5-5.3); SODIUM, SERUM 131 MMOL/L (135-148)
[2016-10-15 06:41] LABS: BASOPHILS 0.2 %; BASOPHILS ABSOLUTE 0.01 10/3/uL (0.0-0.16); EOSINOPHILS 3.4 %; HEMATOCRIT 33.6 % (40.0-51.0); HEMOGLOBIN 10.7 g/dL (13.6-17.8); IMMATURE GRANULOCYTES 0.2 %; IMMATURE GRANULOCYTES ABSOLUTE 0.01 10/3/uL (0.0-0.11); LYMPHOCYTES 13.6 %; LYMPHOCYTES ABSOLUTE 0.79 10/3/uL (0.67-4.30); MANUAL DIFF NO %; MEAN CORPUS HGB CONC 31.8 g/dL (32.0-36.0); MEAN CORPUSCULAR HEMOGLOB 29.5 pg (26.0-34.0); MEAN CORPUSCULAR VOLUME 92.6 fL (80-100); MEAN PLATELET VOLUME 10.8 fL (9.2-13.0); MONOCYTES 10.5 %; MONOCYTES ABSOLUTE 0.61 10/3/uL (0.21-1.20); NEUTROPHILS 72.1 %; PLATELET COUNT 106 10/3/uL (150-400); RBC DISTRIBUTION WIDTH 17.7 % (12.0-16.0); RED CELL COUNT 3.63 10/6/uL (4.7-6.1); WHITE BLOOD CELLS 5.8 10/3/uL (4.5-10.5)
[2016-10-15 06:52] LABS: BUN (BLOOD UREA NITROGEN) 50 MG/DL (6-23); CALCIUM, SERUM 8.6 MG/DL (8.5-10.4); CHLORIDE, SERUM 90 MMOL/L (96-112); CO2 (CARBON DIOXIDE) 30 MMOL/L (24-34); CREATININE 1.94 MG/DL (0.70-1.30); GFR AFRICAN AMERICAN 38 ML/MIN (>=60); GFR NON AFRICAN AMERICAN 33 ML/MIN (>=60); GLUCOSE, SERUM 158 MG/DL (60-99); SODIUM, SERUM 133 MMOL/L (135-148)
[2016-10-15 06:53] LABS: INTERNATIONAL NORMAL RATI 2.3 UNITS (-); PROTIME (NOT ORD) 24.8 SEC (12.0-14.5)
[2016-10-16 05:43] LABS: BASOPHILS 0.2 %; BASOPHILS ABSOLUTE 0.01 10/3/uL (0.0-0.16); EOSINOPHILS ABSOLUTE 0.17 10/3/uL (0.0-0.53); HEMATOCRIT 33.5 % (40.0-51.0); HEMOGLOBIN 10.7 g/dL (13.6-17.8); IMMATURE GRANULOCYTES 0.2 %; IMMATURE GRANULOCYTES ABSOLUTE 0.01 10/3/uL (0.0-0.11); LYMPHOCYTES 11.2 %; LYMPHOCYTES ABSOLUTE 0.63 10/3/uL (0.67-4.30); MEAN CORPUS HGB CONC 31.9 g/dL (32.0-36.0); MEAN CORPUSCULAR HEMOGLOB 29.5 pg (26.0-34.0); MEAN CORPUSCULAR VOLUME 92.3 fL (80-100); MEAN PLATELET VOLUME 11.5 fL (9.2-13.0); MONOCYTES 14.7 %; MONOCYTES ABSOLUTE 0.83 10/3/uL (0.21-1.20); NEUTROPHILS 70.7 %; NEUTROPHILS ABSOLUTE 3.99 10/3/uL (2.02-8.40); PLATELET COUNT 101 10/3/uL (150-400); RBC DISTRIBUTION WIDTH 17.8 % (12.0-16.0); RED CELL COUNT 3.63 10/6/uL (4.7-6.1); WHITE BLOOD CELLS 5.6 10/3/uL (4.5-10.5)
[2016-10-16 05:51] LABS: MANUAL DIFF NO %
[2016-10-16 05:58] LABS: BUN (BLOOD UREA NITROGEN) 51 MG/DL (6-23); CALCIUM, SERUM 8.8 MG/DL (8.5-10.4); CHLORIDE, SERUM 92 MMOL/L (96-112); CO2 (CARBON DIOXIDE) 30 MMOL/L (24-34); CREATININE 1.98 MG/DL (0.70-1.30); GFR AFRICAN AMERICAN 37 ML/MIN (>=60); GFR NON AFRICAN AMERICAN 32 ML/MIN (>=60); GLUCOSE, SERUM 145 MG/DL (60-99); POTASSIUM, SERUM 4.1 MMOL/L (3.5-5.3); SODIUM, SERUM 132 MMOL/L (135-148)
[2016-10-16 06:04] LABS: INTERNATIONAL NORMAL RATI 2.1 UNITS (-); PROTIME (NOT ORD) 23.5 SEC (12.0-14.5)
== END 2016-10-16 15:31 | DRG 291 ==
LOC: ER 09:30 → 7NO 13:29
PROVIDERS: Internal Medicine; Internal Medicine Cardiovascular Disease; Internal Medicine Nephrology; Nurse Practitioner; Nurse Practitioner Family; Registered Nurse
DX: I13.0 Hypertensive heart and chronic kidney disease with heart failure and stage 1 through stage 4 chronic kidney disease, or unspecified chronic kidney disease (principal); I50.43 Acute on chronic combined systolic (congestive) and diastolic (congestive) heart failure; N18.4 Chronic kidney disease, stage 4 (severe); R18.8 Other ascites; E11.22 Type 2 diabetes mellitus with diabetic chronic kidney disease; L03.115 Cellulitis of right lower limb; J44.1 Chronic obstructive pulmonary disease with (acute) exacerbation; Z99.81 Dependence on supplemental oxygen; L03.116 Cellulitis of left lower limb; Z79.4 Long term (current) use of insulin; E87.5 Hyperkalemia; Z87.891 Personal history of nicotine dependence; G47.33 Obstructive sleep apnea (adult) (pediatric); Z95.810 Presence of automatic (implantable) cardiac defibrillator; Z95.1 Presence of aortocoronary bypass graft; Z95.5 Presence of coronary angioplasty implant and graft; I48.2 Chronic atrial fibrillation; Z79.01 Long term (current) use of anticoagulants; I25.5 Ischemic cardiomyopathy; Z51.5 Encounter for palliative care; R53.81 Other malaise; I36.1 Nonrheumatic tricuspid (valve) insufficiency
CPT/HCPCS: 36600; 70450; 71010; 71020; 73700-LT; 74176; 80048; 80053; 80069; 80074; 81001; 82140; 82272; 82533; 82550; 82553; 82607; 82746; 82805; 82962; 83036; 83735; 83880; 84100; 84132; 84145; 84443; 84484; 85025; 85610; 85730; 86592; 87449; 87804; 90662; 93005; 93970; 93975; 94640; 94667; 94668; 96374; 96375; 97110-GP; 97116-GP; 97162-GP; 99285; A9270-GY; C8924; G0008; G8978-CK-GP; G8979-CJ-GP; J1170; J1940; J1956; J2405; P9047; Q9957